=== PATIENT | female | born 1980 | race Caucasian/White ===

== ENCOUNTER 2024-01-07 12:53 | Emergency (ER) | payer MEDICAID ==
[~2024-01-07] VITALS: Ht 172.7 cm; Wt 82.0 kg
[2024-01-07 12:57] VITALS: O2SAT 99
[2024-01-07] MEDS ORDERED: DICYCLOMINE 10 MG/5 ML ORAL SYR PO STA (13:07)
[2024-01-07] MEDS: SODIUM CHLORIDE 0.9% 1,000 ML IV ONE (13:27)
[2024-01-07] MEDS: KETOROLAC 30MG/ML VIAL IV STA (13:27)
[2024-01-07] MEDS: HALOPERIDOL LACTATE 5MG/ML VIAL IM ONE (13:27)
[2024-01-07 13:36] LABS: ALANINE AMINOTRANSFERASE 8 IU/L (10-49); ALBUMIN 4.4 g/dL (3.2-4.8); ASPARTATE AMINOTRANSFERASE 16 IU/L (<34); BILIRUBIN TOTAL 0.3 mg/dL (0.1-1.0); CALCIUM 9.2 mg/dL (8.7-10.4); CARBON DIOXIDE 25 mEq/L (21-32); CHLORIDE 105 mEq/L (98-107); GLUCOSE 111 mg/dL (70-105); POTASSIUM 3.8 mEq/L (3.5-5.1); PROTEIN TOTAL 6.9 g/dL (6.0-8.3); SODIUM 136 mEq/L (136-145); UREA NITROGEN BLOOD 13 mg/dL (9-23)
[2024-01-07 13:42] LABS: BASOPHILS % 0.2 % (0.0-2.0); EOSINOPHILS % 0.1 % (0.0-5.0); HEMATOCRIT. 35.2 % (36.0-48.0); HEMOGLOBIN. 11.5 g/dL (12.0-16.0); LYMPHOCYTES % 11.6 % (20.0-50.0); MEAN CORPUSCULAR HEMOGLOBIN 27.6 pg (28.0-32.0); MEAN CORPUSCULAR HGB CONC 32.6 g/dL (31.0-37.0); MEAN CORPUSCULAR VOLUME 84.5 fL (81.0-99.0); MEAN PLATELET VOLUME 9.5 fl (7.4-10.4); MONOCYTES % 2.3 % (2.0-8.0); NEUTROPHILS % 85.8 % (40.0-76.0); PLATELET 324 x1000/uL (130-400); RED BLOOD CELL COUNT 4.16 mill/uL (4.2-5.4); RED CELL DISTRIBUTION WIDTH 13.4 % (11.6-14.6); WHITE BLOOD COUNT 8.5 x1000/uL (4.5-11.0)
[2024-01-07 13:52] LABS: PROTHROMBIN TIME 10.9 sec (9.6-11.0)
[2024-01-07 14:01] LABS: HCG SCREEN NEGATIVE
[2024-01-07] MEDS: MAGNESIUM/ALUMINUM HYDROXIDE/SIMETHICONE 30ML UDC PO STA (14:29)
[2024-01-07] MEDS: DICYCLOMINE HCL 10MG CAPSULE PO NR (14:29)
[2024-01-07] MEDS: DIPHENHYDRAMINE 50MG/ML VIAL IV ONE (15:06)
[2024-01-07] MEDS: MORPHINE SULFATE 4 MG/ML CPJ (NOT FOR IM USE) IV ONE (15:06)
[2024-01-07] MEDS ORDERED: IBUP-2029 MT (17:50)
[2024-01-07 18:18] VITALS: BP 120/76; PULSE 81; RESP 16; TEMP 97.9
== END 2024-01-07 18:31 | disposition home or self-care (01) ==
LOC: ER 12:53
DX: D25.9 Leiomyoma of uterus, unspecified (principal); R11.2 Nausea with vomiting, unspecified
CPT/HCPCS: 99285; 74176; 96374; 76705; 96361; 96375; 80053; 84703; 83690; 85025; 85610; 36415; 96372; J1200; J1630; J1885; J2270; J7030

== ENCOUNTER 2024-05-15 12:00 | Emergency (ER) | payer MEDICAID ==
[~2024-05-15] VITALS: Ht 172.7 cm; Wt 73.0 kg
[~2024-05-15 12:00] MED LIST: IBUP-2029 MT
[2024-05-15 12:04] VITALS: BP 130/72; PULSE 90; RESP 18; TEMP 98.2; O2SAT 99
[2024-05-15] MEDS ORDERED: ERYT1OIN6 EACHEYE (13:23)
== END 2024-05-15 13:42 | disposition home or self-care (01) ==
LOC: ER 12:00
DX: H10.9 Unspecified conjunctivitis (principal)
CPT/HCPCS: 99283